=== PATIENT | female | born 1935 | race Caucasian/White ===

== ENCOUNTER 2023-06-14 11:18 | Outpatient (AMB) | payer MEDICARE, SELFPAY ==
--- NOTE | 2023-06-14 11:58 | MHC.OFFWIV ---
Intake Vital Signs 06/14/23 12:01 Height 4 ft 9 in Weight 56.245 kg BMI 26.8 BP 112/60 Blood Pressure Location Lt brachial Position Sitting Pulse 87 Pulse Source Pulse Oximeter Temp 97.1 F Temp Source Temporal Artery Scan Pulse Oximetry (%) 99 Intake Visit Reasons: [employer] fell Lft side pain (masked in lobby) Intake Note: pt is here today for fell lt side pain started yesterday Patient Tobacco Use Status: Never used Tobacco Allergies No Known Allergies Allergy (Verified 06/14/23 12:05) Do you need a note to return to daycare/school/sports/work: No HPI HPI Comments History of Present Illness Details 1235 This is an 87-year-old female history of osteoporosis presenting status post fall yesterday, patient has slipped getting off the curb, falling onto her left side since then has been having left anterior rib/chest wall pain, left shoulder pain and left-sided neck pain. Patient reports she hit her head however did not lose consciousness. She reports she was able to get up from the ground on her own however it took her some time. Denies preceding symptoms to fall such as chest pain, shortness breath, vision changes, dizziness. Patient is not on blood thinners. Patient reports intermittent headaches ever since without visual disturbances or dizziness. No associated weakness. Denies chest pain, shortness of breath, nausea vomiting, abdominal pain, vision changes, dizziness and weakness Physical exam significant for left anterior chest wall pain to palpation/upper rib pain on the left. Also having mid axillary pain overlying ribs 4 through 5. No signs of flail chest. Patient reports discomfort with range of motion of left shoulder with overhead movements and with eversion. 2+ radial pulses equal bilateral. Normal sensation distally. No wrist drop. Discomfort with palpation of left distal aspect of clavicle. Also noted to have bilateral cervical paraspinous muscle spasms and tenderness on palpation. No midline pain. Neurological assessment nonfocal. NIH stroke scale 0 History and physical exam concerning for cervical sprain or strain unlikely fracture, dislocation or traumatic subluxation. Unlikely intracranial hemorrhage, stroke or posterior stroke due to negative NIH stroke scale. I am concerned for musculoskeletal pain versus rib fractures. Very difficult to tell based off of my examination as patient is very tender to palpation. No overlying skin changes. Unlikely pneumothorax. No signs of traumatic injury to abdomen. Due to patient's age I did recommend CT head, neck, chest abdomen pelvis and to be seen in an emergency department setting, daughter at the bedside hesitant to go right off the bed due to weight times at emergency department. No signs of acute distress at this time or signs of stroke or intracranial hemorrhage no neurological findings. I did order x-ray of neck, left shoulder, chest/ribs. Will call family with results. I did encourage him to go to the ED. They will think about it unlikely go to [facility]. [facility] Social History Patient Tobacco Use Status: Never used Tobacco Review of Systems Const Details: Constitutional : No Weight loss, No Fever, No Chills, No Fatigue, No Malaise ENT/Mouth : No sore throat, No Rhinorrhea Eyes: No Eye Pain, No Swelling, No Redness Cardiovascular : No Chest Pain, No SOB, No Dyspnea on Exertion, No Orthopnea, No Edema, No Palpitations Respiratory : No Cough, No Sputum, No Wheezing Gastrointestinal : No Nausea, No Vomiting, No Diarrhea, No Constipation, No abdominal Pain, No Hematochezia, No Melena Genitourinary : No Dysuria, No Urinary Frequency, No Hematuria, Musculoskeletal : + joint pain, No Myalgias, No Joint Swelling, + rib pain , + neck pain Skin : No Skin Lesions, No rash Neuro : No Weakness, No Numbness, No Dizziness, No Headache Psych : No Anxiety/Panic, No Depression All other systems reviewed and are negative All systems reviewed & are unremarkable except as noted in HPI and below Physical Exam Vital Signs: Last Vital Signs Temp 97.1 F 06/14/23 12:01 Pulse 87 06/14/23 12:01 BP 112/60 06/14/23 12:01 Pulse Ox 99 06/14/23 12:01 BMI result Body Mass Index 26.8 vss Appearance: Alert.? Oriented X3.? No acute distress.? Head: Normocephalic, atraumatic, no step-offs or deformities Eyes: Pupils equal, round and reactive to light.? ENT: Pharynx normal.? Neck: Normal inspection.? Neck supple.?Also noted to have bilateral cervical paraspinous muscle spasms and tenderness on palpation. No midline pain. CVS: Normal heart rate and rhythm.? Pulses normal.?left anterior chest wall pain to palpation/upper rib pain on the left. Also having mid axillary pain overlying ribs 4 through 5. No signs of flail chest. Respiratory: No respiratory distress.? Breath sounds normal.? Abdomen: Soft and nontender.? Skin: Skin warm and dry.? Normal skin color.? Normal skin turgor.? Extremities: No lower extremity edema.? No calf ttp. 5/5 strength to bilateral upper and lower extremities. Patient reports discomfort with range of motion of left shoulder with overhead movements and with eversion. 2+ radial pulses equal bilateral. Normal sensation distally. No wrist drop. Discomfort with palpation of left distal aspect of clavicle. Back: No midline tenderness, no C-spine tenderness, full range of motion, no CVA tenderness bilaterally Neuro: Oriented X 3.? No motor deficit.? No sensory deficit. CN 2-12 intact NIH stroke scale 0 Assessment & Plan Assessment & Plan (1) Neck pain: Code(s): M54.2 - Cervicalgia (2) Rib pain: Code(s): R07.81 - Pleurodynia (3) Left shoulder pain: Code(s): M25.512 - Pain in left shoulder (4) Fall due to ice or snow: Code(s): W00.9XXA - Unspecified fall due to ice and snow, initial encounter Plan Take your medications as prescribed. If you were prescribed antibiotics today, it is important that you take your medication to their entirety, do not skip any doses, do not finish them early. Follow-up with your primary care provider this week. Return to the emergency department with new or worsening symptoms. Such as fevers, chills, chest pain, shortness of breath, nausea, vomiting, dizziness, headache, vision changes, lethargy In case of emergency call 911 Orders: Orders XR cervical spine 2V Today M54.2 - Cervicalgia XR ribs LT min 3V w CXR1V Today R07.81 - Pleurodynia XR shoulder LT min 2V Today M25.512 - Pain in left shoulder Medications: New tizanidine Can cause drowsiness, increased risk for falls 2 mg PO BID PRN 10 caps 0RF muscle spasticity lidocaine 4% (AsperFlex (lidocaine)) 1 patch topical DAILY PRN 15 ea 0RF pain Coding Level of Care Code Est Pt Level 3 (17561) Diagnoses Neck pain M54.2 Rib pain R07.81 Left shoulder pain M25.512 Fall due to ice or snow W00.9XXA
[2023-06-14 12:01] VITALS: BP 112/60; PULSE 87; TEMP 36.2; O2SAT 99; BMI 26.8
== END 2023-06-14 13:18 | disposition home or self-care (01) ==
PROVIDERS: PCP Physician Assistant Medical; Visit Provider Physician Assistant
DX: M54.2 Cervicalgia (principal); R07.81 Pleurodynia; M25.512 Pain in left shoulder; W00.9XXA Unspecified fall due to ice and snow, initial encounter
CPT/HCPCS: 99213

== ENCOUNTER 2023-06-14 12:46 | Outpatient (REF) | payer MEDICARE, SELFPAY ==
--- NOTE | ~2023-06-14 | XR_ITS ---
Examination: Chest x-ray, left RIBS, left shoulder and cervical spine. CLINICAL HISTORY: Pain. COMPARISON: None. TECHNIQUE: Chest and left RIBS 4 views. Left shoulder 3 views. Cervical spine 3 views. FINDINGS: Chest and left RIBS: The lungs are fairly well-expanded with 8mm and adjacent 2 mm nodules in lingula. Rest of the lungs are clear. The heart size and pulmonary vascularity is normal Left RIBS: Multiple views of left ribs reveal no visible acute fracture, dislocation or bony abnormality. The soft tissues are normal. No lytic or sclerotic process seen. Left shoulder: There is mild reduction the before meals and glenohumeral joint space with periarticular spurring. No visible acute fracture, dislocation or subluxation seen. Cervical spine: There is maintained cervical lordosis. There is grade 1 anterolisthesis C3 over C4. Rest the alignment is normal. There is loss of C4-C5, C5-C6, C6 S7 disc heights with mild ventral spondylosis. No visible acute fracture, dislocation or subluxation seen. The prevertebral and paravertebral soft tissues are normal. XR/XR cervical spine 2V IMPRESSION: 1. There are 2 mm nodules in the lingula. Recommend follow-up CT chest exam. 2. No visible left rib fractures seen. 3. 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 No visible acute fracture, dislocation or subluxation seen. 4. Mild degenerative changes left shoulder.
--- NOTE | ~2023-06-14 | XR_ITS ---
Examination: Chest x-ray, left RIBS, left shoulder and cervical spine. CLINICAL HISTORY: Pain. COMPARISON: None. TECHNIQUE: Chest and left RIBS 4 views. Left shoulder 3 views. Cervical spine 3 views. FINDINGS: Chest and left RIBS: The lungs are fairly well-expanded with 8mm and adjacent 2 mm nodules in lingula. Rest of the lungs are clear. The heart size and pulmonary vascularity is normal Left RIBS: Multiple views of left ribs reveal no visible acute fracture, dislocation or bony abnormality. The soft tissues are normal. No lytic or sclerotic process seen. Left shoulder: There is mild reduction the before meals and glenohumeral joint space with periarticular spurring. No visible acute fracture, dislocation or subluxation seen. Cervical spine: There is maintained cervical lordosis. There is grade 1 anterolisthesis C3 over C4. Rest the alignment is normal. There is loss of C4-C5, C5-C6, C6 S7 disc heights with mild ventral spondylosis. No visible acute fracture, dislocation or subluxation seen. The prevertebral and paravertebral soft tissues are normal. XR/XR ribs LT min 3V w CXR1V IMPRESSION: 1. There are 2 mm nodules in the lingula. Recommend follow-up CT chest exam. 2. No visible left rib fractures seen. 3. 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 No visible acute fracture, dislocation or subluxation seen. 4. Mild degenerative changes left shoulder.
--- NOTE | ~2023-06-14 | XR_ITS ---
Examination: Chest x-ray, left RIBS, left shoulder and cervical spine. CLINICAL HISTORY: Pain. COMPARISON: None. TECHNIQUE: Chest and left RIBS 4 views. Left shoulder 3 views. Cervical spine 3 views. FINDINGS: Chest and left RIBS: The lungs are fairly well-expanded with 8mm and adjacent 2 mm nodules in lingula. Rest of the lungs are clear. The heart size and pulmonary vascularity is normal Left RIBS: Multiple views of left ribs reveal no visible acute fracture, dislocation or bony abnormality. The soft tissues are normal. No lytic or sclerotic process seen. Left shoulder: There is mild reduction the before meals and glenohumeral joint space with periarticular spurring. No visible acute fracture, dislocation or subluxation seen. Cervical spine: There is maintained cervical lordosis. There is grade 1 anterolisthesis C3 over C4. Rest the alignment is normal. There is loss of C4-C5, C5-C6, C6 S7 disc heights with mild ventral spondylosis. No visible acute fracture, dislocation or subluxation seen. The prevertebral and paravertebral soft tissues are normal. XR/XR shoulder LT min 2V IMPRESSION: 1. There are 2 mm nodules in the lingula. Recommend follow-up CT chest exam. 2. No visible left rib fractures seen. 3. 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 No visible acute fracture, dislocation or subluxation seen. 4. Mild degenerative changes left shoulder.
== END 2023-06-14 12:47 | disposition home or self-care (01) ==
LOC: HO.HMGCX 12:46
PROVIDERS: PCP Physician Assistant Medical; Visit Provider Physician Assistant
DX: R07.81 Pleurodynia (principal); M54.2 Cervicalgia; M25.512 Pain in left shoulder
CPT/HCPCS: 71101; 72040; 73030